=== PATIENT | female | born 1950 | race Caucasian/White ===

== ENCOUNTER 2017-04-29 10:09 | Emergency (ER) | payer MEDICAID ==
--- NOTE | 2017-04-29 10:22 | ERPHSYRPT ---
- History of Present Illness Time Seen by Provider: 04/29/17 10:17 Source: patient, EMS Exam Limitations: clinical condition Physician History: The patient is a 68-year-old female brought in by ambulance from home where her son found her face down on the bathroom floor this morning. The last time he saw her in her normal state was yesterday evening. The patient is unable to talk and cannot move her right arm or right leg. She is able to medicate by shaking her head yes or no to simple questions. She is unable to talk. She went to the bathroom at 5 AM and fell. It is now 10 AM. She is in no pain. She has no doctor and takes no prescription medicines. Timing/Duration: hour(s) (5), sudden Severity: severe Character of Deficits: new weakness (right side), unable to speak Deficits: cannot stand, cannot walk Current Cognition: alert oriented x 3 Baseline Gait: walks w/o assistance (you know if she walks n) Associated Symptoms: other (unable to talk), No headache Allergies/Adverse Reactions: No Known Drug Allergies Allergy (Unverified 04/29/17 11:05) Home Medications: No Reportable Medications [No Reported Medications] 04/29/17 [History] - Review of Systems Constitutional: No Fever, No Chills Eyes: No Symptoms Ears, Nose, & Throat: No Symptoms (the past Deb Booke that with evidence she she is allergic to pen clindamycin is the onl that she can take I can't let now there is nothing sh he has Walabhayt called me and and that she said cancer) Respiratory: No Cough, No Dyspnea Cardiac: No Chest Pain, No Edema, No Syncope Abdominal/Gastrointestinal: No No Symptoms (that's why he shouldn't what you she didn't have to go to the dentist if he doctor have insura or boggy got if you're normal), No Abdominal Pain, No Nausea, No Vomiting, No Diarrhea Genitourinary Symptoms: No Dysuria Musculoskeletal: Fall Skin: No Rash Neurological: Paralysis Psychological: No Symptoms Endocrine: No Symptoms Hematologic/Lymphatic: No Symptoms Immunological/Allergic: No Symptoms All Other Systems: Reviewed and Negative - Nursing Vital Signs Nursing Vital Signs: Initial Vital Signs Temperature 98.5 F 04/29/17 10:30 Pulse Rate 96 H 04/29/17 10:30 Respiratory Rate 16 04/29/17 10:30 Blood Pressure 158/62 04/29/17 10:30 O2 Sat by Pulse Oximetry 95 04/29/17 10:30 Pain Scale Pain Intensity 0 - Martinez Coma Scale Best Eye Response (Martinez): (4) open spontaneously Best Verbal Response (Superior): (5) oriented (communicates by nodding head) Best Motor Response (Martinez): (6) obeys commands Martinez Total: 15 - Physical Exam General Appearance: moderate distress Eye Exam: bilateral eye: PERRL, EOMI Ears, Nose, Throat Exam: dry mucous membranes Neck Exam: normal inspection, non-tender, supple Respiratory: normal breath sounds, lungs clear, airway intact, No respiratory distress Cardiovascular: regular rate/rhythm, No edema Gastrointestinal: soft, No tenderness, No distention Pelvic Exam: not done Rectal Exam: not done Back Exam: normal inspection Extremity Exam: contusions (you have), paralysis (right upper and lower extremity a white count that she h Ice on its it's awful that and it it happens when yes you've got to be ab) Mental Status: alert Coordination/Gait: abnormal gait (unable to walk), ABN nose to finger (R) Motor/Sensory: weak motor strength RUE (no movement ), weak motor strength RLE ( no movement) Skin Exam: abrasion (right knee) SpO2 Interpretation: normal - Course EKG Interpreted by Me: RATE, Sinus Rhythm, NORMAL AXIS, NORMAL INTERVALS, NORMAL QRS, NORMAL ST-T - CT Exams Head CT Interpretation: Discussed w/radiologist, No/Intracranial Hemorrhag, Other ( acute infarct in left basal ganglia without intracranial blood per Dr Hinton.) Cervical Spine CT Interpretation: Negative, Discussed w/radiologist (per Dr Hinton) Ordered Tests: Active Orders 24 hr Category Date Time Status Catheter-[place] STAT Care 04/29/17 10:26 Active EKG-ER Only STAT Care 04/29/17 10:26 Active IV Insertion STAT Care 04/29/17 10:26 Active CERVICAL SPINE WO CONTRAST [CT] Stat Exams 04/29/17 10:16 Taken HEAD WITHOUT CONTRAST [CT] Stat Exams 04/29/17 10:16 Taken CBC W DIFF Stat Lab 04/29/17 10:15 Completed CMP Stat Lab 04/29/17 10:15 Completed Lactic Acid Stat Lab 04/29/17 10:26 Completed PROTIME WITH INR Stat Lab 04/29/17 10:15 Completed TROPONIN Q3H Lab 04/29/17 10:15 Received TROPONIN Q3H Lab 04/29/17 13:30 Ordered TROPONIN Q3H Lab 04/29/17 16:30 Ordered TROPONIN Q3H Lab 04/29/17 19:30 Ordered TROPONIN Q3H Lab 04/29/17 22:30 Ordered UA W/RFX UR CULTURE Stat Lab 04/29/17 10:27 Ordered Medication Summary Generic Name Dose Route Start Last Admin Trade Name Freq PRN Reason Stop Dose Admin Sodium Chloride 1,000 mls @ 999 mls/hr 04/29/17 10:26 04/29/17 11:08 Sodium Chloride 0.9% 1000 Ml IV 04/29/17 11:26 999 mls/hr .Q1H1M STA Administration Discontinued Medications Generic Name Dose Route Start Last Admin Trade Name Freq PRN Reason Stop Dose Admin Sodium Chloride Confirm 04/29/17 11:06 Sodium Chloride 0.9% 1000 Ml Administered 04/29/17 11:07 Dose 1,000 mls @ ud .ROUTE .STK-MED ONE Lab/Rad Data: Laboratory Result Diagrams 04/29/17 10:15 04/29/17 10:15 Laboratory Results 04/29/17 04/29/17 04/29/17 Range/Units 10:26 10:15 10:15 WBC (4.0-10.5) K/mm3 RBC (4.1-5.4) M/mm3 Hgb (12.0-16.0) gm/dl Hct (35-47) % MCV (78-100) fl MCH (26-32) pg MCHC (32-36) g/dl RDW (11.5-14.0) % Plt Count (150-450) K/mm3 MPV (6-9.5) fl Gran % (36.0-66.0) % Lymphocytes % (24.0-44.0) % Monocytes % (0.0-12.0) % Eosinophils % (0.00-5.0) % Basophils % (0.0-0.4) % Basophils # (0-0.4) INR 1.19 (0.8-3.0) Sodium 138 (136-145) mEq/L Potassium 3.9 (3.5-5.1) mEq/L Chloride 101 (98-107) mEq/L Carbon Dioxide 25.3 (21-32) mEq/L Anion Gap 15.3 H (5-15) MEQ/L BUN 9 (9-20) mg/dL Creatinine 0.75 (0.55-1.30) mg/dl Estimated GFR > 60 ML/MIN Glucose 145 H (70-110) MG/DL Lactic Acid 1.6 (0.4-2.0) Calcium 9.5 (8.5-10.1) mg/dL Total Bilirubin 0.60 (0.2-1.0) mg/dL AST 22 (15-37) U/L ALT 16 (12-78) U/L Alkaline Phosphatase 128 H (46-116) U/L Serum Total Protein 7.8 (6.4-8.2) gm/dL Albumin 3.3 L (3.4-5.0) g/dL 12/16/17 Range/Units 10:15 WBC 17.0 H (4.0-10.5) K/mm3 RBC 5.83 H (4.1-5.4) M/mm3 Hgb 16.1 H (12.0-16.0) gm/dl Hct 50.7 H (35-47) % MCV 87.0 (78-100) fl MCH 27.6 (26-32) pg MCHC 31.8 L (32-36) g/dl RDW 16.2 H (11.5-14.0) % Plt Count 433 (150-450) K/mm3 MPV 10.0 H (6-9.5) fl Gran % 82.3 H (36.0-66.0) % Lymphocytes % 9.4 L (24.0-44.0) % Monocytes % 7.8 (0.0-12.0) % Eosinophils % 0.4 (0.00-5.0) % Basophils % 0.1 (0.0-0.4) % Basophils # 0.02 (0-0.4) INR (0.8-3.0) Sodium (136-145) mEq/L Potassium (3.5-5.1) mEq/L Chloride (98-107) mEq/L Carbon Dioxide (21-32) mEq/L Anion Gap (5-15) MEQ/L BUN (9-20) mg/dL Creatinine (0.55-1.30) mg/dl Estimated GFR ML/MIN Glucose (70-110) MG/DL Lactic Acid (0.4-2.0) Calcium (8.5-10.1) mg/dL Total Bilirubin (0.2-1.0) mg/dL AST (15-37) U/L ALT (12-78) U/L Alkaline Phosphatase (46-116) U/L Serum Total Protein (6.4-8.2) gm/dL Albumin (3.4-5.0) g/dL - Departure Time of Disposition: 11:39 Departure Disposition: Transfer (transfer to [facility] per Dr Law) Clinical Impression: Embolic stroke Condition: Good Critical Care Time: No Referrals: DOCTOR,NO FAMILY [Primary Care Provider] - Additional Instructions: You have an embolic stroke that occurred at 5 AM this morning. Unfortunately you are not within the window for clot busting treatment. You are being transferred to [facility] for further care by a neurologist.
[2017-04-29] MEDS ORDERED: Sodium Chloride 0.9% 1000 ML 1,000 ML IV STA (10:26)
[2017-04-29 10:43] LABS: BASOPHIL % 0.1 % (0.0-0.4); Eosinophil % 0.4 % (0.00-5.0); Granulocytes % 82.3 % (36.0-66.0); Lymphocytes % 9.4 % (24.0-44.0); Mean Corpuscular Hemoglobin 27.6 pg (26-32); Monocytes % 7.8 % (0.0-12.0); Platelet Count 433 K/mm3 (150-450); Red Blood Count 5.83 M/mm3 (4.1-5.4); Red Cell Distribution Width 16.2 % (11.5-14.0)
[2017-04-29 11:04] LABS: INR 1.19 (0.8-3.0); PROTIME 13.2 SECONDS (9.95-12.35)
[2017-04-29] MEDS ORDERED: Sodium Chloride 0.9% 1000 ML 1,000 ML ONE (11:06)
[2017-04-29 11:14] LABS: ALBUMIN 3.3 g/dL (3.4-5.0); ALKALINE PHOSPHATASE 128 U/L (46-116); ANION GAP 15.3 MEQ/L (5-15); BLOOD UREA NITROGEN 9 mg/dL (9-20); CHLORIDE 101 mEq/L (98-107); Carbon Dioxide 25.3 mEq/L (21-32); Glucose 145 MG/DL (70-110); Potassium 3.9 mEq/L (3.5-5.1); SGOT/AST 22 U/L (15-37); SGPT/ALT 16 U/L (12-78); SODIUM 138 mEq/L (136-145); Total Protein 7.8 gm/dL (6.4-8.2)
[2017-04-29 11:36] VITALS: BP 149/56; PULSE 100; O2SAT 94
[2017-04-29 11:51] LABS: ADD URINE CULTURE? YES (NO); Bacteria RARE /HPF (NEGATIVE); Bilirubin NEGATIVE (NEGATIVE); Blood TRACE NON-HEM Ery/ul (0-5); COMPLETE URINE MICROSCOPIC? YES; Collection Type CATH; Epithelial Cells RARE /HPF (FEW); Glucose NEGATIVE (NEGATIVE); Leukocyte Esterase TRACE (NEGATIVE); Mucus MANY /HPF (NEGATIVE)
--- NOTE | 2017-04-29 21:04 | XRAY ---
Indication: Found unresponsive. Unable to speak or move right side. Multiple contiguous axial images obtained through the head without contrast. Comparison: None There is moderate sized focus of hypoattenuation in the left basal ganglia/insula at least 2 x 2.5 cm favoring acute ischemia. No acute hemorrhage or mass effect. Fourth ventricle is midline without hydrocephalus. Bony calvarium intact. Visualized paranasal sinuses and mastoid air cells are clear. Impression: Left basal ganglia/insular acute ischemia. MRI may yield further information if clinically warranted. Comment: Preliminary interpretation was made by [facility]. No discrepancy. CTDI 51.62
--- NOTE | 2017-04-29 21:08 | XRAY ---
Indication: Found unresponsive. Unable to speak or move right side. Multiple contiguous axial images obtained through the cervical spine. Sagittal and coronal reformatted images obtained. Comparison: None Axial images negative for acute fracture, suspicious bony lesions, or spinal canal stenosis. There is mild C5-C7 degenerative endplate spurring. Sagittal and coronal reformatted images demonstrates cervical lordotic straightening, positional versus paraspinal spasm. C6-C7 degenerative disc space narrowing. No acute compression fracture, subluxation, or jumped facet. Visualized noncontrasted soft tissues demonstrates mild carotid calcifications, right greater than left. Right apical pulmonary fibrosis/scarring. CT head reported separately. Impression: 1. Lordotic straightening, positional versus paraspinal spasm. Negative acute fracture/subluxation. 2. C5-C7 degenerative disc disease. Comment: Preliminary interpretation was made by [facility]. No critical discrepancy. CTDI 117.72
== END 2017-04-29 12:04 | disposition short-term general hospital (02) ==
LOC: ED 10:09 → EDBD 10:09 → ED 12:04
DX: I63.40 Cerebral infarction due to embolism of unspecified cerebral artery (principal)
CPT/HCPCS: 36000; 36415; 51702; 70450; 72125; 80053; 81000; 83605; 84484; 85025; 85610; 87086; 93005; 93041; 96360; 99285; P9612